=== PATIENT | female | born 2000 | race African-American/Black ===

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

== ENCOUNTER 2020-04-08 10:16 | Outpatient (CLI) | payer MEDICAID ==
[~2020-04-08] VITALS: Ht 165.1 cm; Wt 69.1 kg
[~2020-04-08 10:16] MED LIST: FERR324T5 PO; ONDA4TAB7 PO; PREN1TAB60 PO
[2020-04-08 10:40] VITALS: BP 118/72
== END 2020-04-08 11:26 | disposition home or self-care (01) ==
LOC: LDOP 10:16
PROVIDERS: ATTEND Obstetrics & Gynecology
DX: O42.92 Full-term premature rupture of membranes, unspecified as to length of time between rupture and onset of labor (principal); Z3A.39 39 weeks gestation of pregnancy
CPT/HCPCS: 59025; 84112

== ENCOUNTER 2020-04-09 04:08 | Outpatient (CLI) | payer MEDICAID ==
[~2020-04-09] VITALS: Ht 165.1 cm; Wt 68.0 kg
[2020-04-09 04:17] VITALS: BP 131/75
[2020-04-10] MEDS ORDERED: IBUP-1222 PO (15:09)
== END 2020-04-09 05:37 | disposition home or self-care (01) ==
LOC: LDOP 04:08
PROVIDERS: ATTEND Obstetrics & Gynecology
DX: O26.893 Other specified pregnancy related conditions, third trimester (principal); Z3A.39 39 weeks gestation of pregnancy
CPT/HCPCS: 59025

== ENCOUNTER 2020-04-09 08:12 | Inpatient (IN) | payer MEDICAID ==
[~2020-04-09] VITALS: Ht 165.1 cm; Wt 70.5 kg
[2020-04-09] MEDS ORDERED: OXYTOCIN 30U/ 0.9% NaCL 500ML 500 ML IV ONE (09:00)
[2020-04-09] MEDS ORDERED: FENTANYL PF 100 MCG/2ML IV PRN (09:00)
[2020-04-09] MEDS ORDERED: D5%-LACTATED RINGERS 1,000 ML IV SCH (09:00)
[2020-04-09] MEDS ORDERED: TERBUTALINE 1 MG/ML, 1ML IVPush PRN (09:00)
[2020-04-09] MEDS ORDERED: TERBUTALINE 1 MG/ML, 1ML SQ PRN (09:00)
[2020-04-09] MEDS ORDERED: ONDANSETRON 2MG/ML, 2ML IVPush PRN ×2 (09:00→11:00)
[2020-04-09] MEDS ORDERED: FENTANYL PF 100 MCG/2ML IVPush PRN (09:00)
[2020-04-09 09:28] LABS: BASOPHILS % (AUTO) 1 % (0-1); EOSINOPHILS % (AUTO) 0 % (1-7); LYMPHOCYTES % (AUTO) 13 % (22-44); MEAN CORPUSCULAR HEMOGLOBIN 26.2 pg (27.0-34.8); MEAN CORPUSCULAR HGB CONC 32.4 g/dL (32.4-35.8); MEAN PLATELET VOLUME 8.9 fL (7.4-10.4); MONOCYTES % (AUTO) 7 % (2-9); NEUTROPHILS % (AUTO) 80 % (42-75); PLATELET COUNT 209 x10^3/uL (130-400); RED CELL DISTRIBUTION WIDTH 14.7 % (9.6-15.2)
[2020-04-09 09:30] LABS: MD NO
[2020-04-09] MEDS ORDERED: PLEASE ENTER HEIGHT AND WEIGHT MC SCH (09:30)
[2020-04-09] MEDS: LACTATED RINGERS 1,000 ML IV SCH ×4 (09:44→19:00)
[2020-04-09] MEDS ORDERED: LIDOCAINE 1%, 20ML ONE (09:55)
[2020-04-09] MEDS ORDERED: NEWBORN KIT ONE (09:55)
[2020-04-09] MEDS ORDERED: FENTANYL PF 100 MCG/2ML ONE (09:56)
[2020-04-09] MEDS ORDERED: MISOPROSTOL 200 MCG TABLET ONE (09:56)
[2020-04-09] MEDS ORDERED: OXYTOCIN 30U/ 0.9% NaCL 500ML 500 ML ONE ×2 (09:56→17:04)
[2020-04-09] MEDS: D5%-LACTATED RINGERS 1,000 ML IV SCH ×2 (10:00→18:00)
[2020-04-09] MEDS ORDERED: BUPIVACAINE 0.25% ONE (10:16)
[2020-04-09] MEDS ORDERED: FENTANYL/BUPIV./NS/PF 250 ML EPIDCONT ONE (10:16)
[2020-04-09] MEDS ORDERED: DIPHENHYDRAMINE 50 MG/ML, 1ML IVPush PRN (11:00)
[2020-04-09] MEDS ORDERED: EPHEDRINE 50 MG/ML, 1ML IVPush PRN (11:00)
[2020-04-09] MEDS ORDERED: FENTANYL/BUPIV./NS/PF 250 ML EPIDCONT SCH (11:00)
[2020-04-09] MEDS ORDERED: LACTATED RINGERS 1,000 ML IVBOLUS PRN (11:00)
[2020-04-09] MEDS ORDERED: NALOXONE 0.4 MG/ML, 1ML IVPush PRN (11:00)
[2020-04-09 11:08] LABS: MICROSCOPIC NOT IND
[2020-04-09 11:22] LABS: AMPHETAMINE SCREEN, URINE Negative (Negative); BARBITURATE SCREEN, URINE Negative (Negative); BENZODIAZEPINE SCREEN, URINE Negative (Negative); CANNABINOID SCREEN, URINE Positive (Negative); COCAINE SCREEN, URINE Negative (Negative); METHADONE SCREEN, URINE Negative (Negative); OPIATE SCREEN, URINE Negative (Negative)
[2020-04-09] MEDS ORDERED: OXYTOCIN 30U/ 0.9% NaCL 500ML 500 ML IV PRN (11:30)
[2020-04-09 11:42] VITALS: BP 116/70
[2020-04-09] MEDS ORDERED: GENTAMICIN PER PHARMACY MC PRN (16:30)
[2020-04-09] MEDS ORDERED: IBUPROFEN 600 MG TABLET ONE (16:37)
[2020-04-09] MEDS: AMPICILLIN 2 GM in SODIUM CHLORIDE 0.9% 100 ML IV SCH ×2 (16:39→22:15)
[2020-04-09] MEDS: IBUPROFEN 200 MG TABLET PO PRN (16:44)
[2020-04-09] MEDS ORDERED: IBUPROFEN 800 MG TABLET PO PRN (17:00)
[2020-04-09] MEDS ORDERED: ACETAMINOPHEN 325 MG TABLET PO PRN (17:00)
[2020-04-09] MEDS ORDERED: DOCUSATE 100 MG CAPSULE PO PRN (17:00)
[2020-04-09] MEDS ORDERED: MISOPROSTOL 200 MCG TABLET PR PRN (17:00)
[2020-04-09] MEDS ORDERED: OXYTOCIN 10 UNITS/ML, 1ML IM PRN (17:00)
[2020-04-09] MEDS ORDERED: TRANEXAMIC ACID 100 MG/ML, 10ML IV ONE (17:00)
[2020-04-09] MEDS ORDERED: SIMETHICONE 80 MG CHEW TAB PO PRN (17:00)
[2020-04-09] MEDS ORDERED: CALCIUM CARBONATE 500 MG TAB.CHEW PO PRN (17:00)
[2020-04-09] MEDS ORDERED: OXYcodone/APAP 5/325MG TABLET PO PRN (17:00)
[2020-04-09] MEDS ORDERED: GENTAMICIN 140 MG in SODIUM CHLORIDE 0.9% 50 ML IV ONE (17:00)
[2020-04-09] MEDS ORDERED: METHYLERGONOVINE 0.2 MG/ML IM PRN (17:00)
[2020-04-09] MEDS ORDERED: ONDANSETRON 2MG/ML, 2ML IV PRN (17:00)
[2020-04-09] MEDS: OXYTOCIN 30U/ 0.9% NaCL 500ML 500 ML IV SCH (17:07)
[2020-04-09] MEDS ORDERED: PHARMACOKINETIC CONSULTATION MC ONE (17:30)
[2020-04-09] MEDS ORDERED: PHARMACOKINETIC MONITORING MC PRN (17:30)
[2020-04-09 20:00] VITALS: BP_SYST 107
[2020-04-09] MEDS: OXYcodone/APAP 5/325MG TABLET PO PRN (22:23)
[2020-04-10 00:06] VITALS: BP 107/64
[2020-04-10] MEDS ORDERED: GENTAMICIN 100 MG in SODIUM CHLORIDE 0.9% 50 ML IV SCH (01:00)
[2020-04-10] MEDS: GENTAMICIN 100 MG in SODIUM CHLORIDE 0.9% 50 ML IV SCH ×2 (01:00→08:47)
[2020-04-10] MEDS: OXYTOCIN 30U/ 0.9% NaCL 500ML 500 ML IV SCH (01:12)
[2020-04-10] MEDS: D5%-LACTATED RINGERS 1,000 ML IV SCH ×3 (02:00→18:00)
[2020-04-10] MEDS: LACTATED RINGERS 1,000 ML IV SCH ×5 (02:00→18:00)
[2020-04-10] MEDS: IBUPROFEN 200 MG TABLET PO PRN ×3 (02:51→14:59)
[2020-04-10 03:02] VITALS: BP 112/67
[2020-04-10] MEDS: AMPICILLIN 2 GM in SODIUM CHLORIDE 0.9% 100 ML IV SCH ×3 (04:21→11:11)
[2020-04-10] MEDS: OXYcodone/APAP 5/325MG TABLET PO PRN ×3 (04:46→14:59)
[2020-04-10 05:20] LABS: BASOPHILS % (AUTO) 0 % (0-1); EOSINOPHILS % (AUTO) 0 % (1-7); LYMPHOCYTES % (AUTO) 11 % (22-44); MEAN CORPUSCULAR HEMOGLOBIN 26.2 pg (27.0-34.8); MEAN CORPUSCULAR HGB CONC 32.7 g/dL (32.4-35.8); MEAN PLATELET VOLUME 8.8 fL (7.4-10.4); MONOCYTES % (AUTO) 6 % (2-9); NEUTROPHILS % (AUTO) 82 % (42-75); PLATELET COUNT 197 x10^3/uL (130-400); RED BLOOD COUNT 3.55 x10^6/uL (3.82-5.3)
[2020-04-10 06:43] LABS: MD NO
[2020-04-10 07:35] VITALS: BP 111/67
[2020-04-10] MEDS ORDERED: PRENATAL VIT/IRON/FA 1 EACH TABLET PO SCH (09:00)
[2020-04-10] MEDS ORDERED: IBUPROFEN 600 MG TABLET ONE (14:56)
[2020-04-10] MEDS ORDERED: IBUP-1222 PO (15:09)
== END 2020-04-10 18:35 | disposition home or self-care (01) | DRG 807 ==
LOC: LDOP 08:12 → LDIP 08:58 → 2NW 19:53
PROVIDERS: ADMIT Obstetrics & Gynecology; ATTEND Obstetrics & Gynecology
PROC: 10E0XZZ Delivery of Products of Conception, External Approach (ICD-10-PCS; principal; 2020-04-09)
DX: O80 Encounter for full-term uncomplicated delivery (principal); Z37.0 Single live birth; Z79.899 Other long term (current) drug therapy
CPT/HCPCS: 36415; 80307; 81003; 85025; 86592; 86850; 86900; 87635; G0378; J0290; J2405; J1580; J2590; J3010; J7120